=== PATIENT | female | born 1980 | race Caucasian/White ===

== ENCOUNTER 2017-04-03 07:50 | Emergency (ER) | payer BC, MEDICAID ==
[~2017-04-03] VITALS: Ht 154.9 cm; Wt 86.2 kg
[2017-04-03 08:03] VITALS: BP 116/57
[2017-04-03] MEDS ORDERED: LIDO:MAALOX:DONNATAL 1:1:1 15 ML SINGLE DOSE SWSW ONE (08:15)
[2017-04-03] MEDS ORDERED: ONDANSETRON ODT 4 MG TAB.RAPDIS. PO ONE (08:15)
[2017-04-03] MEDS ORDERED: FAMOTIDINE 20 MG TABLET. PO ONE (08:15)
--- NOTE | 2017-04-03 08:26 | PHYS DOC ---
Past Medical History Past Medical History: GERD Past Surgical History: Cholecystectomy Alcohol Use: None Drug Use: None Adult General Chief Complaint Chief Complaint: ABDOMINAL PAIN HPI HPI Patient is a 36 year old female with history of GERD, cholecystectomy, who presents today with moderate midepigastric abdominal pain that has been going on intermittently for 5 days with nausea but no vomiting. Patient states she takes Zantac for chronic acid reflex. Patient states she was seen at a [facility] 5 days ago with the same complaint. She states they did labs and gave her IV fluids. She is also complaining of lower extremity swelling. 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 Patient denies any chance she is , she states she has a Mirena. She is requesting pain medicine. She states she would like to be "put out of pain". She is in no distress. Informed patient will check her labs, informed we will give her acid reflex medications. Review of Systems Review of Systems Constitutional: Denies fever or chills [] Eyes: Denies change in visual acuity, redness, or eye pain [] HENT: Denies nasal congestion or sore throat [] Respiratory: Denies cough or shortness of breath [] Cardiovascular: No additional information not addressed in HPI [] GI: Epigastric pain, nausea : Denies dysuria or hematuria [] Musculoskeletal: Denies back pain or joint pain [] Integument: Denies rash or skin lesions [] Neurologic: Denies headache, focal weakness or sensory changes [] Endocrine: Denies polyuria or polydipsia [] Current Medications Current Medications Current Medications Medications (Trade) Dose Ordered Sig/Keke Start Time Stop Time Status Last Admin Dose Admin Famotidine (Pepcid) 20 mg 1X ONCE 04/03/17 08:15 04/03/17 08:15 DC Multi-Ingredient Mouthwash/Gargle (Gi Cocktail Single Dose) 15 ml 1X ONCE 04/03/17 08:15 04/03/17 08:15 DC Ondansetron HCl (Zofran Odt) 4 mg 1X ONCE 04/03/17 08:15 04/03/17 08:15 DC Allergies Allergies Allergies Coded Allergies Type Severity Reaction Last Updated Verified NSAIDS (Non-Steroidal Anti-Inflamma Allergy Intermediate 04/03/17 Yes Penicillins Allergy Intermediate 04/03/17 Yes bupropion Allergy Intermediate 04/03/17 Yes morphine Allergy Intermediate 04/03/17 Yes tramadol Allergy Intermediate 04/03/17 Yes Physical Exam Physical Exam Constitutional: Well developed, well nourished, no acute distress, non-toxic appearance. [] HENT: Normocephalic, atraumatic, bilateral external ears normal, oropharynx moist, no oral exudates, nose normal. [] Eyes: PERRLA, EOMI, conjunctiva normal, no discharge. [] Neck: Normal range of motion, no tenderness, supple, no stridor. 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 Slight midepigastric tenderness on exam. Bowel sounds normal, soft, no masses, no pulsatile masses. [] Skin: Warm, dry, no erythema, no rash. [] Back: No tenderness, no CVA tenderness. [] Extremities: No tenderness, no cyanosis, no clubbing, ROM intact, no edema. [] Neurologic: Alert and oriented X 3, normal motor function, normal sensory function, no focal deficits noted. [] Psychologic: Affect normal, judgement normal, mood normal. [] Current Patient Data Vital Signs Vital Signs Date Time Temp Pulse Resp B/P (MAP) Pulse Ox O2 Delivery O2 Flow Rate FiO2 04/03/17 08:03 97.7 82 20 116/57 (76) 97 Room Air 97.7 EKG EKG [] Radiology/Procedures Radiology/Procedures [] Course & Med Decision Making Course & Med Decision Making Pertinent Labs and Imaging studies reviewed. (See chart for details) This is a 36-year-old female patient who presents today with epigastric abdominal pain with nausea that began 5 days ago. Patient states she was seen at the [facility] a couple days ago for the same complaint and had IV fluids she is also complaining of lower extremity swelling. Patient states her pain has not improved. She is requesting something for pain and stating clearly should like to be "put out of pain". Informed patient we will do labs, give her antiacid and antinausea medicine and if everything looks normal we will send her home. I understand from nursing staff patient stood up and left. Teresa Disclaimer Dragon Disclaimer This electronic medical record was generated, in whole or in part, using a voice recognition dictation system. Departure Departure Impression: Primary Impression: Left against medical advice Additional Impression: Epigastric abdominal pain Disposition: 07 AGAINST MEDICAL ADVICE Condition: STABLE Referrals: NO PCP (PCP) Problem Qualifiers JAQUAN GARCIA APRN April 03, 2017 08:26
== END 2017-04-03 08:10 | disposition left against medical advice (07) ==
LOC: ER 07:50
DX: R10.13 Epigastric pain (principal); K21.9 Gastro-esophageal reflux disease without esophagitis; Z90.49 Acquired absence of other specified parts of digestive tract; Z88.0 Allergy status to penicillin; Z88.6 Allergy status to analgesic agent; Z88.8 Allergy status to other drugs, medicaments and biological substances
CPT/HCPCS: 99281

== ENCOUNTER 2020-07-21 03:48 | Emergency (ER) | payer SELFPAY ==
[~2020-07-21] VITALS: Ht 170.2 cm; Wt 90.9 kg
--- NOTE | 2020-07-21 03:56 | PHYS DOC ---
Past Medical History Past Medical History: GERD Past Surgical History: Cholecystectomy Smoking Status: Current Every Day Smoker Alcohol Use: None Drug Use: None General Adult EDM: Chief Complaint: VAGINAL BLEEDING HPI: HPI: 39-year-old female who presents for evaluation of 1 day of vaginal bleeding with clots. She reports heavy vaginal bleeding earlier today, somewhat improved. Her last menses was about 2 weeks ago. She states that she has had regular menses since her Mirena was removed a few months ago. She reports unprotected intercourse since then. She states that about 1 month ago, she was treated for possibility of STDs with the typical medications. She does report some vaginal discharge, minimal, ongoing since her prior ED visit at [place]. No anticoagulant use. No significant abdominal pain, nausea, vomiting. She does report some mild vulvovaginal pruritus. She expresses concern regarding possible recurrent STI. Review of Systems: Review of Systems: Gen: No fever, chills. Eyes: No blurred vision, diplopia. ENT: No nasal congestion, sore throat. CV: No CP, palpitations. Resp. No SOB, cough. GI: No abd pain, N/V. : No dysuria, hematuria. Reports vaginal bleeding and discharge. Neuro: No DAVIS, dizziness, weakness. MSK: No myalgia, arthralgia, back pain. Skin: No acute rash or lesion. Heart Score: Risk Factors: Risk Factors: DM, Current or recent (<one month) smoker, HTN, HLP, family history of CAD, obesity. Risk Scores: Score 0 - 3: 2.5% MACE over next 6 weeks - Discharge Home Score 4 - 6: 20.3% MACE over next 6 weeks - Admit for Clinical Observation Score 7 - 10: 72.7% MACE over next 6 weeks - Early Invasive Strategies Allergies: Allergies: Allergies Coded Allergies Type Severity Reaction Last Updated Verified NSAIDS (Non-Steroidal Anti-Inflamma Allergy Intermediate 04/03/17 Yes Penicillins Allergy Intermediate 04/03/17 Yes bupropion Allergy Intermediate 04/03/17 Yes morphine Allergy Intermediate 04/03/17 Yes tramadol Allergy Intermediate 04/03/17 Yes Physical Exam: PE: Gen: NAD. Well nourished. Head: NC/AT. Eyes: No scleral icterus. No conjunctival injection. ENT: MMM. Neck: Supple. CV: RRR. Peripheral pulses intact. Resp: CTAB. Abd: Soft. NT. ND. : No perineal rash. White discharge noted in the posterior fornix. Cervix closed with mild hyperemia. No blood noted. MSK: No peripheral cyanosis. No edema. Neuro: Awake and alert. Skin. Warm. Dry. No acute rash. Psych: Appropriate mood & affect. EKG: EKG: [] Radiology/Procedures: Radiology/Procedures: [] Course & Med Decision Making: Course & Med Decision Making Pertinent Labs and Imaging studies reviewed. (See chart for details) In summary, 39-year-old female who presents for evaluation of reported vaginal bleeding as well as ongoing discharge. Despite her reported vaginal bleeding, there was no blood noted in the posterior fornix. There was however, some white discharge and mild cervical hyperemia. Lab work is otherwise unremarkable. Serum negative. She expresses significant concern for possibility of STI. As such, should be treated empirically. She reports an anaphylactic penicillin allergy. As such, will receive gentamicin 240 mg IM, oral Zithromax 2 g, oral Flagyl 500 mg (with 7-day prescription twice daily). Urinalysis did reveal presence of yeast, not convincing for urinary tract infection otherwise. Given oral Diflucan 150 mg x1. Will be discharged home pending results, which would not change her management otherwise. Outpatient follow-up. Advised protected intercourse. Return precautions given. Teresa Disclaimer: Teresa Disclaimer: This electronic medical record was generated, in whole or in part, using a voice recognition dictation system. Departure Departure Impression: Primary Impression: Vaginal bleeding Additional Impression: Vaginal discharge Disposition: HOME, SELF-CARE Condition: STABLE Referrals: NO PCP (PCP) Patient Instructions: Cervicitis, [id number] Scripts Ondansetron (ONDANSETRON ODT) 4 Mg Tab.rapdis 1 TAB PO PRN Q6-8HRS, #16 TAB Prov: LE,FERNANDO H DO 07/21/20 Metronidazole (FLAGYL) 500 Mg Tablet 1 TAB PO BID, #14 TAB Prov: LE,FERNANDO H DO 07/21/20 Justicifation of Admission Dx: Justifications for Admission: Justification of Admission Dx: N/A LE,FERNANDO H DO Jul 21, 2020 03:56
[2020-07-21 04:19] LABS: HEMATOCRIT 36.9 % (36.0-47.0); HEMOGLOBIN 12.7 g/dL (12.0-15.5); RED BLOOD COUNT 3.99 x10^6/uL (3.50-5.40); RED CELL DISTRIBUTION WIDTH 13.3 % (11.5-14.5); WHITE BLOOD COUNT 8.9 x10^3/uL (4.0-11.0)
[2020-07-21 04:23] LABS: BILIRUBIN,URINE NEGATIVE (NEG); CLARITY,URINE CLEAR; COLOR,URINE YELLOW; NITRITE,URINE NEGATIVE (NEG); PROTEIN,URINE NEGATIVE (NEG-TRACE); UROBILINOGEN,URINE 0.2 mg/dL (0.2 mg/dL)
[2020-07-21 04:29] LABS: CALCIUM 8.9 mg/dL (8.5-10.1); CREATININE 0.7 mg/dL (0.6-1.0); GFR 94.2; POTASSIUM 3.8 mmol/L (3.5-5.1)
[2020-07-21 04:35] LABS: ALBUMIN 3.4 g/dL (3.4-5.0); ALBUMIN/GLOBULIN RATIO 1.1 (1.0-1.7); TOTAL BILIRUBIN 0.2 mg/dL (0.2-1.0); TOTAL PROTEIN 6.4 g/dL (6.4-8.2)
[2020-07-21 04:36] LABS: PREG TEST PT QUAL NEGATIVE (NEG)
[2020-07-21 04:53] LABS: BACTERIA,URINE MOD /HPF (0-FEW); SQUAMOUS EPITHELIAL CELL,UR MANY /LPF; YEAST,URINE PRESENT /HPF
[2020-07-21] MEDS ORDERED: ONDANSETRON ODT 4 MG TAB.RAPDIS. ONE (05:05)
[2020-07-21] MEDS ORDERED: ONDA4TAB12 PO (05:15)
[2020-07-21] MEDS ORDERED: METR500T PO (05:15)
[2020-07-21] MEDS ORDERED: AZITHROMYCIN 250 MG TABLET. PO ONE (05:30)
[2020-07-21] MEDS ORDERED: metroNIDAZOLE 500 MG TABLET PO ONE (05:30)
[2020-07-21] MEDS ORDERED: GENTAMICIN SULFATE 80 MG/2 ML VIAL. IM ONE (05:30)
[2020-07-21] MEDS ORDERED: ONDANSETRON ODT 4 MG TAB.RAPDIS. PO ONE (05:30)
[2020-07-21] MEDS ORDERED: FLUCONAZOLE 100 MG TABLET. PO ONE (05:30)
[2020-07-21 05:50] VITALS: BP 122/59
[2020-07-23 19:09] LABS: GC PROBE Negative (Negative)
== END 2020-07-21 05:56 | disposition home or self-care (01) ==
LOC: ER 03:48
DX: N93.9 Abnormal uterine and vaginal bleeding, unspecified (principal); L29.2 Pruritus vulvae; K21.9 Gastro-esophageal reflux disease without esophagitis; F17.200 Nicotine dependence, unspecified, uncomplicated; Z90.49 Acquired absence of other specified parts of digestive tract; Z88.6 Allergy status to analgesic agent; Z88.8 Allergy status to other drugs, medicaments and biological substances; Z88.0 Allergy status to penicillin
CPT/HCPCS: 80053; 81001; 84703; 85027; 87491; 87591; 96372; 99284; J1580

== ENCOUNTER 2020-07-28 08:39 | Emergency (ER) | payer BC ==
[~2020-07-28] VITALS: Ht 170.2 cm; Wt 86.0 kg
[~2020-07-28 08:39] MED LIST: METR500T PO; ONDA4TAB12 PO
--- NOTE | 2020-07-28 08:57 | PHYS DOC ---
Past Medical History Past Medical History: GERD, Other Additional Past Medical Histor: peptic ulcers Past Surgical History: Cholecystectomy, Other Additional Past Surgical Histo: bilateral knee scope Smoking Status: Current Every Day Smoker Alcohol Use: Rarely Drug Use: None General Adult EDM: Chief Complaint: VAGINAL PROBLEM HPI: HPI: 39F p/w vulvovaginal irritation for some time now. She reports that it feels "raw" in her vaginal area, associated with burning with urination. She believes that she may be allergic to the toilet paper at her work. She states that her symptoms worsen while at work, and improve on her days off. Was seen by me for vaginal discharge last week, treated empirically for GC/chlamydia, bacterial vaginosis, trichomoniasis, yeast infection. She states her vaginal discharge has resolved. Review of Systems: Review of Systems: Gen: No fever, chills. Eyes: No blurred vision, diplopia. ENT: No nasal congestion, sore throat. CV: No CP, palpitations. Resp. No SOB, cough. GI: No abd pain, N/V. : No hematuria. Reports dysuria. Neuro: No DAVIS, dizziness, weakness. MSK: No myalgia, arthralgia, back pain. Skin: Reports vulvovaginal irritation. Heart Score: Risk Factors: Risk Factors: DM, Current or recent (<one month) smoker, HTN, HLP, family history of CAD, obesity. Risk Scores: Score 0 - 3: 2.5% MACE over next 6 weeks - Discharge Home Score 4 - 6: 20.3% MACE over next 6 weeks - Admit for Clinical Observation Score 7 - 10: 72.7% MACE over next 6 weeks - Early Invasive Strategies Allergies: Allergies: Allergies Coded Allergies Type Severity Reaction Last Updated Verified Penicillins Allergy Severe 07/21/20 Yes NSAIDS (Non-Steroidal Anti-Inflamma Allergy Intermediate 04/03/17 Yes bupropion Allergy Intermediate 04/03/17 Yes morphine Allergy Intermediate 04/03/17 Yes tramadol Allergy Intermediate 04/03/17 Yes Physical Exam: PE: Gen: NAD. Well nourished. Head: NC/AT. Eyes: No scleral icterus. No conjunctival injection. ENT: MMM. Posterior OP clear. Neck: Supple. CV: RRR. Peripheral pulses intact. Resp: CTAB. Abd: Soft. NT. ND. : Mild tender erythema of the upper labia minora. No perineal rash, fluctuance, or induration. MSK: No peripheral cyanosis. No edema. Neuro: Awake and alert. Skin. Warm. Dry. Psych: Appropriate mood & affect. Current Patient Data: Labs: Laboratory Tests Test 07/28/20 08:55 07/28/20 09:12 Urine Collection Type Void Urine Color Yellow Urine Clarity Clear Urine pH 6.0 (<5.0-8.0) Urine Specific [place] 1.025 (1.000-1.030) Urine Protein Negative mg/dL (NEG-TRACE) Urine Glucose (UA) Negative mg/dL (NEG) Urine Ketones (Stick) Negative mg/dL (NEG) Urine Blood Negative (NEG) Urine Nitrite Negative (NEG) Urine Bilirubin Negative (NEG) Urine Urobilinogen Dipstick 0.2 mg/dL (0.2 mg/dL) Urine Leukocyte Esterase Large (NEG) Urine RBC Occ /HPF (0-2) Urine WBC 20-40 /HPF (0-4) Urine Squamous Epithelial Cells Mod /LPF Urine Bacteria Mod /HPF (0-FEW) Urine Trichomonas Present Urine Test Negative (NEG) Bedside Urine HCG, Qualitative Hcg negative (Negative) EKG: EKG: [] Radiology/Procedures: Radiology/Procedures: [] Course & Med Decision Making: Course & Med Decision Making Pertinent Labs and Imaging studies reviewed. (See chart for details) In summary, 39F p/w vulvovaginal erythema/pruritis, no discharge. UA with trich, given flagyl 2 g PO x1. Suspicion for allergic reaction is low, addressing patient's concern she may be allergic to toilet paper at work. Rx clotrimazole cream. Return precautions given. Teresa Disclaimer: Teresa Disclaimer: This electronic medical record was generated, in whole or in part, using a voice recognition dictation system. Departure Departure Impression: Primary Impression: Trichomoniasis Additional Impression: Vulvovaginal pain Referrals: NO PCP (PCP) Justicifation of Admission Dx: Justifications for Admission: Justification of Admission Dx: N/A FERNANDO DE LA FUENTE DO Jul 28, 2020 08:57
[2020-07-28 09:18] LABS: BILIRUBIN,URINE NEGATIVE (NEG); CLARITY,URINE CLEAR; COLOR,URINE YELLOW; NITRITE,URINE NEGATIVE (NEG); PROTEIN,URINE NEGATIVE (NEG-TRACE); UROBILINOGEN,URINE 0.2 mg/dL (0.2 mg/dL)
[2020-07-28 09:22] LABS: U PREG PATIENT NEGATIVE (NEG)
[2020-07-28 09:27] LABS: BACTERIA,URINE MOD /HPF (0-FEW); RBC,URINE OCC /HPF (0-2); SQUAMOUS EPITHELIAL CELL,UR MOD /LPF; WBC,URINE 20-40 /HPF (0-4)
[2020-07-28 09:28] LABS: TRICHOMONAS,URINE PRESENT
[2020-07-28 09:30] VITALS: BP 112/64
[2020-07-28] MEDS ORDERED: CLOT15CR5 TP (09:42)
[2020-07-28] MEDS ORDERED: metroNIDAZOLE 500 MG TABLET PO ONE (09:45)
[2020-07-28] MEDS ORDERED: ONDANSETRON ODT 4 MG TAB.RAPDIS. PO ONE (09:45)
== END 2020-07-28 09:50 | disposition home or self-care (01) ==
LOC: ER 08:39
DX: A59.01 Trichomonal vulvovaginitis (principal); R30.0 Dysuria; L53.9 Erythematous condition, unspecified; K21.9 Gastro-esophageal reflux disease without esophagitis; F17.200 Nicotine dependence, unspecified, uncomplicated; Z90.49 Acquired absence of other specified parts of digestive tract; Z98.890 Other specified postprocedural states; Z88.0 Allergy status to penicillin; Z88.6 Allergy status to analgesic agent; Z88.8 Allergy status to other drugs, medicaments and biological substances
CPT/HCPCS: 81001; 81025; 99283

== ENCOUNTER 2020-09-29 05:23 | Emergency (ER) | payer BC ==
[~2020-09-29] VITALS: Ht 170.2 cm; Wt 86.6 kg
[~2020-09-29 05:23] MED LIST changes: +CLOT15CR5 TP
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
[2020-09-29] MEDS ORDERED: cefTRIAXone IM 250 MG VIAL IM ONE (06:00)
[2020-09-29 06:15] VITALS: BP 110/77
[2020-09-29] MEDS ORDERED: AZITHROMYCIN 250 MG TABLET. PO ONE (06:15)
[2020-09-29] MEDS ORDERED: metroNIDAZOLE 500 MG TABLET PO ONE (06:30)
[2020-09-29] MEDS ORDERED: GENTAMICIN SULFATE 80 MG/2 ML VIAL. IM ONE (06:30)
== END 2020-09-29 06:26 | disposition home or self-care (01) ==
LOC: ER 05:23
DX: A64 Unspecified sexually transmitted disease (principal); N89.8 Other specified noninflammatory disorders of vagina; K21.9 Gastro-esophageal reflux disease without esophagitis; F17.200 Nicotine dependence, unspecified, uncomplicated; Z90.49 Acquired absence of other specified parts of digestive tract; Z88.0 Allergy status to penicillin; Z88.5 Allergy status to narcotic agent; Z88.6 Allergy status to analgesic agent; Z88.8 Allergy status to other drugs, medicaments and biological substances
CPT/HCPCS: 81025; 96372; 99283; J1580

== ENCOUNTER 2021-07-25 02:45 | Emergency (ER) | payer BC ==
[~2021-07-25] VITALS: Ht 170.2 cm; Wt 100.0 kg
[2021-07-25 03:01] VITALS: BP 131/96
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
== END 2021-07-25 04:30 | disposition home or self-care (01) ==
LOC: ER 02:45
DX: S60.211A Contusion of right wrist, initial encounter (principal); Y08.89XA Assault by other specified means, initial encounter; Y93.89 Activity, other specified; Y92.89 Other specified places as the place of occurrence of the external cause; Y99.8 Other external cause status; Z88.0 Allergy status to penicillin; Z88.5 Allergy status to narcotic agent; Z88.6 Allergy status to analgesic agent; Z88.8 Allergy status to other drugs, medicaments and biological substances
CPT/HCPCS: 29125; 73110; 73130; 99284